=== PATIENT | male | born 1985 | race Two or more races ===

== ENCOUNTER 2017-01-05 18:41 | Emergency (ER) | payer OTHER ==
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
[2017-01-05] MEDS ORDERED: PROPARACAINE 0.5% 15 ML OPHT DROP ONE (18:57)
[2017-01-05] MEDS ORDERED: FLUORESCEIN SODIUM 1 MG STRIP OP ONE ×2 (18:57→19:02)
[2017-01-05 19:01] VITALS: BP 172/112; PULSE 95; RESP 18; TEMP 98.2; O2SAT 95
[2017-01-05] MEDS ORDERED: PROPARACAINE 0.5% 15 ML OPHT DROP EACHEYE ONE (19:01)
[2017-01-05] MEDS ORDERED: diphenhydrAMINE 25 MG CAP PO ONE (19:09)
[2017-01-05] MEDS ORDERED: SULFACETAMIDE DROPS 10% PREPACK OPHT.BTL TAKEHOME ONE (19:12)
== END 2017-01-05 19:31 | disposition home or self-care (01) ==
LOC: EDUNIT#
DX: T59.3X3A Toxic effect of lacrimogenic gas, assault, initial encounter (principal); H10.213 Acute toxic conjunctivitis, bilateral